=== PATIENT | male | born 1990 | race Caucasian/White ===

== ENCOUNTER 2018-03-14 14:29 | Emergency (ER) | payer SELFPAY ==
--- NOTE | 2018-03-14 14:51 | RAD ---
LEFT WRIST 3 VIEWS: Date: 03/14/18 HISTORY: Injury to left hand. FINDINGS: Carpals appear normally aligned. No evidence of fracture identified. IMPRESSION: No evidence of acute fracture. POS: [facility]
[2018-03-14] MEDS ORDERED: traMADol HCl 50 MG TAB ONE (15:06)
== END 2018-03-14 15:13 | disposition home or self-care (01) ==
LOC: NAV ERS 14:29
DX: S63.502A Unspecified sprain of left wrist, initial encounter (principal); F17.210 Nicotine dependence, cigarettes, uncomplicated

== ENCOUNTER 2018-05-27 12:52 | Emergency (ER) | payer SELFPAY ==
[~2018-05-27 12:52] MED LIST: Iopamidol 370 76% 100 ML VIAL ONE
[2018-05-27] MEDS ORDERED: Ondansetron HCl/PF 4 MG/2 ML Vial ONE (13:23)
[2018-05-27] MEDS ORDERED: Sodium Chloride 0.9% 1,000 ML ONE (13:23)
[2018-05-27 13:46] LABS: PTT 33.7 SEC (22.9-36.1); Prothrombin Time 13.6 SEC (12.0-14.7)
[2018-05-27 13:57] LABS: ALT (SGPT) 14 U/L (8-55); AST (SGOT) 20 U/L (5-34); Albumin 4.5 g/dL (3.5-5.0); Alkaline Phosphatase 66 U/L (40-150); Anion Gap 15 mmol/L (10-20); BUN (Urea Nitrogen) 15 mg/dL (8.9-20.6); Bilirubin, Total 0.9 mg/dL (0.2-1.2); CK (CPK) 330 U/L (30-200); Calc. Creatinine Clearance 0 mL/min (70-130); Calcium 10.1 mg/dL (7.8-10.44); Carbon Dioxide 23 mmol/L (22-29); Chloride 103 mmol/L (98-107); Estimated GFR-MDRD Greater than 90; Globulin 2.7 g/dL (2.4-3.5); Glucose 103 mg/dL (70-105); Lipase 12 U/L (8-78); Potassium 3.3 mmol/L (3.5-5.1); Protein, Total 7.2 g/dL (6.0-8.3); Sodium 138 mmol/L (136-145)
--- NOTE | 2018-05-27 14:03 | CT ---
CT ABDOMEN AND PELVIS WITH IV CONTRAST: HISTORY: Right lower quadrant pain. Right upper quadrant pain. Rebound tenderness near McBurney's point. FINDINGS: There are focal areas of ground glass opacification at the posteromedial aspects of the lung bases, r ight greater than left. The liver, spleen, pancreas, adrenal glands, and kidneys are normal. No pey[place] cified gallstones are seen. No free air, free fluid, or lymphadenopathy is seen in the abdomen or pe lvis. A normal appearing appendix is present. No acute osseous abnormalities are seen. IMPRESSION: 1. No CT evidence of appendicitis. 2. Patchy ground glass infiltrates in the lung bases. POS: [facility]
[2018-05-27 14:09] LABS: #Basophils 0.2 thou/uL (0.0-0.2); #Eosinphils 0.2 thou/uL (0.0-0.7); #Lymphocytes 2.7 thou/uL (1.20-3.40); #Monocytes 1.1 thou/uL (0.11-0.59); #Neutrophils 6.5 thou/uL (1.40-6.50); %Basophils 1.8 % (0.0-1.0); %Eosinophils 1.4 % (0.0-10.0); %Lymphocytes 25.1 % (21.0-51.0); %Monocytes 10.7 % (0.0-10.0); Hemoglobin 15.1 g/dL (14.0-18.0); Mean Corpuscular HGB CONC 33.5 g/dL (32.0-36.0); Mean Corpuscular Hemoglobin 28.8 pg (27.0-31.0); Mean Platelet Volume 12.4 fL (7.4-10.4); Platelet Count 211 thou/uL (130-400); RBC Distribution Width 11.5 % (11.5-14.5); Red Blood Cell (RBC) Count 5.26 mill/uL (4.70-6.10); White Blood Cell (WBC) Count 10.6 thou/uL (4.8-10.8)
== END 2018-05-27 14:45 | disposition home or self-care (01) ==
LOC: NAV ERS 12:52
DX: R10.31 Right lower quadrant pain (principal); G89.29 Other chronic pain; M79.673 Pain in unspecified foot; F17.210 Nicotine dependence, cigarettes, uncomplicated
CPT/HCPCS: 74177; 80053; 82550; 83690; 85025; 85610; 85730; 96361; 96374; 96375; J2270; J2405; J7050